=== PATIENT | male | born 1980 | race Caucasian/White ===

== ENCOUNTER 2020-07-22 18:24 | Emergency (ER) | payer SELFPAY ==
[~2020-07-22] VITALS: Ht 170.2 cm; Wt 74.8 kg
[2020-07-22 18:55] VITALS: BP 115/90
--- NOTE | 2020-07-22 19:45 | NUR ---
Patient discharged with v/s stable. Written and verbal after care instructions given and explained. Patient alert, oriented and verbalized understanding of instructions. Ambulatory with steady gait. All questions addressed prior to discharge. ID band removed. Patient advised to follow up with PMD. Rx of ALBUTEROL, NAPROSYN, HYDROCORTISONE, AND PROMETHEZINE given. Patient educated on indication of medication including possible reaction and side effects. Opportunity to ask questions provided and answered.
== END 2020-07-22 19:45 | disposition home or self-care (01) ==
LOC: MED 18:24
DX: U07.1 COVID-19 (principal); R21 Rash and other nonspecific skin eruption; Z90.49 Acquired absence of other specified parts of digestive tract
CPT/HCPCS: 99283

== ENCOUNTER 2020-07-25 18:48 | Emergency (ER) | payer SELFPAY ==
[~2020-07-25] VITALS: Ht 175.3 cm; Wt 95.3 kg
[2020-07-25 19:03] VITALS: BP 142/68
--- NOTE | 2020-07-25 19:14 | NUR ---
PT TESTED COVID + JUL 19 C/O SOB, FEVER AND CHEST PAIN. NO RESP DISTRESS AT THIS TIME. VSS. PMH: ASTHMA NKDA
--- NOTE | 2020-07-25 19:45 | NUR ---
SEEN AND EXAMINED BY ARCHANA
[2020-07-25 20:30] VITALS: BP 123/73
--- NOTE | 2020-07-25 20:30 | NUR ---
Patient discharged with v/s stable. Written and verbal after care instructions given and explained. Patient alert, oriented and verbalized understanding of instructions. Ambulatory with steady gait. All questions addressed prior to discharge. ID band removed. Patient advised to follow up with PMD. Rx of ALBUTEROL, ZOFRAN, TYLENOL given. Patient educated on indication of medication including possible reaction and side effects. Opportunity to ask questions provided and answered.
== END 2020-07-25 20:30 | disposition home or self-care (01) ==
LOC: MED 18:48
DX: U07.1 COVID-19 (principal); J12.82 Pneumonia due to coronavirus disease 2019; J45.909 Unspecified asthma, uncomplicated
CPT/HCPCS: 99283